=== PATIENT | female | born 1975 | race Caucasian/White ===

== ENCOUNTER 2017-07-05 13:52 | Emergency (ER) | payer BC, OTHER ==
[2017-07-05 14:29] LABS: Bilirubin Moderate (Negative); Blood, Urine Negative (Negative); Clarity Turbid (Clear); Glucose, Urine (Dipstick) Negative (Negative); Leukocyte Negative (Negative); Nitrite Negative (Negative); Protein, Urine (Dipstick) 30 mg/dL (Neg-Trace)
[2017-07-05 14:36] LABS: Bacteria/HPF Rare-Few HPF (None Seen); Crystals/HPF 4+ AMORPH URATES HPF (Negative); RBC/HPF 0-3 HPF (0-3); Squamous Epithelial 0-3 HPF (0-3); WBC/HPF 0-3 HPF (0-3)
[2017-07-05] MEDS ORDERED: Acetaminophen/Codeine 30-300mg Tablet ONE (14:51)
[2017-07-05 15:00] LABS: #Monocytes 0.6 thou/uL (0.11-0.59); #Neutrophils 10.8 thou/uL (1.40-6.50); %Basophils 0.3 % (0.0-1.0); %Eosinophils 0.1 % (0.0-10.0); %Lymphocytes 7.8 % (21.0-51.0); %Monocytes 5.1 % (0.0-10.0); %Neutrophils 86.8 % (42.0-75.0); Hemoglobin 14.9 g/dL (12.0-16.0); Mean Corpuscular HGB CONC 33.5 g/dL (32.0-36.0); Mean Corpuscular Hemoglobin 31.2 pg (27.0-31.0); Mean Corpuscular Volume 93.3 fl (81.0-99.0); Mean Platelet Volume 6.8 fL (7.4-10.4); Platelet Count 283 thou/uL (130-400); RBC Distribution Width 11.1 % (11.5-14.5); Red Blood Cell (RBC) Count 4.76 mill/uL (4.20-5.40); White Blood Cell (WBC) Count 12.5 thou/uL (4.8-10.8)
[2017-07-05 15:07] LABS: Specific Gravity, Urine 1.034 (1.005-1.030)
[2017-07-05 15:17] LABS: ALT (SGPT) 40 U/L (8-55); AST (SGOT) 21 U/L (5-34); Albumin 4.1 g/dL (3.5-5.0); Alkaline Phosphatase 62 U/L (40-150); Anion Gap 15 mmol/L (10-20); BUN (Urea Nitrogen) 13 mg/dL (7.0-18.7); Bilirubin, Total 0.4 mg/dL (0.2-1.2); Calc. Creatinine Clearance 0 mL/min (70-130); Calcium 9.3 mg/dL (7.8-10.44); Carbon Dioxide 24 mmol/L (22-29); Chloride 103 mmol/L (98-107); Estimated GFR-MDRD Greater than 90; Globulin 3.4 g/dL (2.4-3.5); Glucose 99 mg/dL (70-105); Potassium 4.2 mmol/L (3.5-5.1); Protein, Total 7.5 g/dL (6.0-8.3); Sodium 138 mmol/L (136-145)
[2017-07-05] MEDS ORDERED: Iopamidol 370 76% 100 ML VIAL ONE (15:59)
--- NOTE | 2017-07-05 21:09 | CT ---
CT ABDOMEN AND PELVIS WITH CONTRAST 07/05/[address] of the abdomen and pelvis was performed for evaluation of abdominal pain. Axial slices were acquired, then coronal reconstructions were done. The lung bases are clear. The liver, spleen, pancreas, adrenal glands, kidneys and abdominal aorta al l appeared normal. The bowel is nondistended. There is abundant fecal material in the colon but no si gn of obstruction. No inflammatory changes are seen around bowel and there is no free air or free flu id. CT of the pelvis showed no pelvic masses. No adnexal cysts were seen. There is no free fluid or gross inflammatory change. A small amount of streaking seen in the fat around the rectum is nonspecific an d little can be made of it at this time. IMPRESSION: Mild constipation but no definite acute findings otherwise. POS: HOME
== END 2017-07-05 15:47 | disposition home or self-care (01) ==
LOC: BURERS 13:52
DX: R10.30 Lower abdominal pain, unspecified (principal); I34.1 Nonrheumatic mitral (valve) prolapse; Z79.899 Other long term (current) drug therapy
CPT/HCPCS: 74177; 80053; 81003; 81015; 85025; A4216

== ENCOUNTER 2020-04-06 17:13 | Outpatient (CLI) | payer BC ==
[2020-04-06 17:46] LABS: #Basophils 0.1 thou/uL (0.0-0.2); #Eosinphils 0.2 thou/uL (0.0-0.7); #Lymphocytes 2.3 thou/uL (1.20-3.40); #Monocytes 0.6 thou/uL (0.11-0.59); #Neutrophils 3.7 thou/uL (1.40-6.50); %Basophils 1.6 % (0.0-1.0); %Eosinophils 2.5 % (0.0-10.0); %Lymphocytes 33.3 % (21.0-51.0); %Monocytes 9.2 % (0.0-10.0); %Neutrophils 53.4 % (42.0-75.0); Hemoglobin 13.6 g/dL (12.0-16.0); Mean Corpuscular HGB CONC 31.3 g/dL (32.0-36.0); Mean Corpuscular Hemoglobin 32.1 pg (27.0-31.0); Mean Platelet Volume 8.3 fL (7.4-10.4); Platelet Count 264 thou/uL (130-400); Red Blood Cell (RBC) Count 4.24 mill/uL (4.20-5.40); White Blood Cell (WBC) Count 6.8 thou/uL (4.8-10.8)
--- NOTE | 2020-04-06 19:28 | RAD ---
ABDOMEN TWO VIEWS: 04/06/20 Supine and erect films show no free air beneath the diaphragm. The gas pattern is unremarkable with n o sign of obstruction. There is mild increase of fecal material in the colon. Some scattered gas is s een in small bowel, but no loops are dilated. Pelvic calcifications appear to be phleboliths. Clips are noted in the right upper quadrant presumably from a prior cholecystectomy. The lung bases are inc luded and appear clear. IMPRESSION: Minimal constipation. Exam otherwise unremarkable. Attempted to call Dr. Bal at [id number]. POS: HOME
== END 2020-04-06 17:14 | disposition home or self-care (01) ==
LOC: BURRAD 17:13
PROVIDERS: ATTEND Internal Medicine Gastroenterology
DX: R10.30 Lower abdominal pain, unspecified (principal); R19.7 Diarrhea, unspecified; K59.00 Constipation, unspecified
CPT/HCPCS: 36415; 74019; 85025

== ENCOUNTER 2022-03-06 14:50 | Outpatient (CLI) | payer BC | END 2022-03-06 14:51 | disposition home or self-care (01) | LOC: BURRAD 14:50 | PROVIDERS: ATTEND Nurse Practitioner Family | DX: N23 Unspecified renal colic (principal); K59.00 Constipation, unspecified | CPT/HCPCS: 74019 ==